=== PATIENT | female | born 1980 | race American Indian/Alaskan Native ===

== ENCOUNTER 2017-12-24 13:10 | Emergency (ER) | payer MEDICAID ==
[2017-12-24 13:17] VITALS: BP 127/92; PULSE 76; RESP 18; TEMP 98.6; O2SAT 100
--- NOTE | 2017-12-24 13:43 | ED PDOC ---
HPI: General Adult Time Seen by Provider: 12/24/17 13:38 Chief Complaint (Nursing): Abnormal Skin Integrity Chief Complaint (Provider): wound check History Per: Patient Onset/Duration Of Symptoms: Days (x 1 month) Additional Complaint(s): 37 year old female presents to the ED for evaluation of chin wound. Patient reports a month ago she fell, injuring her chin and she had sutures placed. She presents today to have sutures removed. Patient states area is causing her pain especially at night. Patient states that she tired several times to come back to ED sooner for removal but every time she came here ED was too busy. PMD: none Past Medical History Reviewed: Historical Data, Nursing Documentation, Vital Signs Vital Signs: Last Vital Signs Temp 98.6 F 12/24/17 13:14 Pulse 76 12/24/17 13:14 Resp 18 12/24/17 13:14 BP 127/92 H 12/24/17 13:14 Pulse Ox 100 12/24/17 13:57 - Medical History PMH: No Chronic Diseases - Surgical History Surgical History: No Surg Hx - Family History Family History: States: No Known Family Hx - Living Arrangements Living Arrangements: With Family - Social History Current smoker - smoking cessation education provided: No Alcohol: > 2 Drinks/Day Drugs: Denies - Immunization History Hx Tetanus Toxoid Vaccination: Yes - Allergies Allergies/Adverse Reactions: Allergies Allergy/AdvReac Type Severity Reaction Status Date / Time No Known Allergies Allergy Verified 12/24/17 13:14 Review of Systems ROS Statement: Except As Marked, All Systems Reviewed And Found Negative Constitutional: Negative for: Fever, Chills ENT: Positive for: Other (chin laceration, 1 month old, needs sutures removed) Physical Exam - Reviewed Nursing Documentation Reviewed: Yes Vital Signs Reviewed: Yes - Physical Exam Appears: Positive for: Well, Non-toxic, No Acute Distress Skin: Negative for: Rash Eye Exam: Positive for: Normal appearance ENT: Positive for: Other (sutured laceration to chin noted, [address], scar tissue has formation noted, no acute infection) Extremity: Positive for: Normal ROM Neurologic/Psych: Positive for: Alert, Oriented - ECG O2 Sat by Pulse Oximetry: 100 (RA) Pulse Ox Interpretation: Normal Medical Decision Making Medical Decision Makin37 year old here for suture removal of chin laceration 2 sutures removed from wound without difficulty. Patient was given wound care instructions. Disposition - Clinical Impression Clinical Impression: Visit for suture removal - Patient ED Disposition Is Patient to be Admitted: No Counseled Patient/Family Regarding: Need For Followup - Disposition Referrals: [facility] [Outside] Disposition: Routine/Home Disposition Time: 14:21 Condition: STABLE Additional Instructions: Keep wound clean and dry. Follow up as needed with clinic. Instructions: Stitches Removal Forms: [employer] (Kiswahili)
== END 2017-12-24 14:31 | disposition home or self-care (01) ==
LOC: H.ER 13:10
DX: Z48.02 Encounter for removal of sutures (principal)